=== PATIENT | female | born 1940 | race Caucasian/White ===

== ENCOUNTER → 2018-01-22 | Outpatient (CLI) | payer OTHER ==
[~2018-01-22] MED LIST: ALBUTEROL INH; ALENDRONATE SOD70 MG PO; AMBEREN PO; ASPIRIN325 PO; BAYER CHEWABLE81 MG PO; CALCIUM PO; CENTRUM SILVER1 EAC4 PO; CRESTOR20 MG PO; GLUCOSAMINE-CH1 EA37 PO; IBUPROFEN 200200 M1 PO; LOPRESSOR25 PO; NORCO 5-325 TA1 EACH PO; OMEGA-31000 MG PO; PLAVIX 75 MG TA75 MG PO; PROTONIX40 M1 PO; RESTASIS1 EACH; SPIRIVA INH; SYMBICORT160 MCG/4. INH; THERA TEARS1 EAC1; THERA TEARS1 EACH OP; TYLENOL325 MG PO; ZETIA10 MG PO
== END ==
LOC: CAT 10:15
DX: M48.04 Spinal stenosis, thoracic region (principal); I25.10 Atherosclerotic heart disease of native coronary artery without angina pectoris; I70.0 Atherosclerosis of aorta; J98.4 Other disorders of lung; N26.1 Atrophy of kidney (terminal); K44.9 Diaphragmatic hernia without obstruction or gangrene

== ENCOUNTER 2020-08-27 18:23 | Inpatient (IN) | payer OTHER ==
[~2020-08-27] VITALS: Ht 160 cm; Wt 54.9 kg
[2020-08-28] MEDS ORDERED: IRON18 M1 PO (01:13)
--- NOTE | 2020-08-28 03:12 | NUR ---
DIRECT ADMIT FROM [facility]. ARRIVED TO THE UNIT AT APPROXIMATELY 0100. PT IS A/O X4 AND IS ON 2 LITERS OF 02 NC. DENIES ANY C/O PAIN OR DISCOMFORT. NEWSPAPER MANAGER VISITED WITH PT AND HAS PUT IN ORDERS. ADMISSION IS COMPLETE. PT IS SITTING IN RECLINER AND STATES SHE HAS A HX OF COPD WITH SOA WHILE LYING DOWN SO PREFERS TO SLEEP IN THE CHAIR. VSS. AFEBRILE. LABS DRAWN AT PREVIOUS HOSPITAL WITH LOW HGB. NOTIFIED NEWSPAPER MANAGER. ORDERS FOR REDRAW WITH LAB IN THE AM RUN. UPDATED MED REC WITH PT. FALL PRECAUTIONS ARE IMPLEMENTED, CALL LIGHT IS WITHIN REACH. WILL CONTINUE TO MONITOR.
[2020-08-28] MEDS ORDERED: IRON325 M1 PO (04:55)
[2020-08-28] MEDS ORDERED: CRESTOR20 MG PO (05:04)
[2020-08-28] MEDS ORDERED: HYDROCHLOROTHIA25 M2 PO ×2 (05:07→05:08)
[2020-08-28] MEDS ORDERED: COZAAR 25 MG TA25 M1 PO (05:10)
[2020-08-28 05:50] VITALS: BP 140/90
[2020-08-28 06:57] LABS: HEMOGLOBIN 6.8 gm/dL (12.0-15.0)
[2020-08-28 07:00] LABS: HEMATOCRIT 21.2 % (37.0-47.0); MCH 29.6 pg (26.0-34.0); MCHC 32.1 g/dL (28.0-37.0); MCV 92.4 fL (80.0-100.0); RBC 2.29 mil/uL (4.20-5.00); WBC 5.9 thou/uL (4.0-11.0)
[2020-08-28 07:07] LABS: CALCIUM 9.3 mg/dL (8.5-10.1); CREATININE 3.4 mg/dL (0.6-1.0); POTASSIUM 4.2 mmol/L (3.5-5.1)
[2020-08-28 07:13] LABS: TOTAL BILIRUBIN 0.3 mg/dL (0.2-1.0); TOTAL PROTEIN 7.1 g/dL (6.4-8.2)
[2020-08-28 08:55] LABS: % SATURATION 19 % (20-39); IRON 38 ug/dL (50-170); TIBC 196 ug/dL (250-450)
[2020-08-28 09:08] LABS: FERRITIN 214 ng/mL (8-252)
[2020-08-28 09:16] VITALS: BP 141/79
--- NOTE | 2020-08-28 09:20 | NUR ---
Patient had right dumpectomy, no blood procedure or IV stick in right arm; the staff put a pink alert wrist band on the right wrist; patient has an IV on the right arm, but patient refused to have that IV pulled out and refused to have a new IV on the other side.
--- NOTE | 2020-08-28 09:34 | NUR ---
Patient refused to take pills with empty stomach. Patient wants to find out the reason why she has been on NPO, Dr. Adithya case, awaiting response.
--- NOTE | 2020-08-28 12:36 | EKG ---
[place] [address] [address] [facility] [facility] [place] [address] ELECTROCARDIOGRAM REPORT Name: SURYA NUGENTLISA Mcintosh Room #: 463-P ADM IN M.R.#: [id number] Admission: 08/28/20 Attend Phys: Shyam Haji MD Discharge: Date of : 39 Report #: [id number] [facility] Test Date: 2020-08-28 Test Time: 09:09:31 Pat Name: SABINA NUGENT Department: Room: 463 Gender: F [employer] Supervisor: : 1940 Requested By: Manny Slade Order Number: [id number] MD: Manny Slade Measurements Intervals [place] Rate: 97 P: 84 DE: 76 QRS: 12 QRSD: 96 T: 140 QT: 505 QTc: 642 Interpretive Statements Sinus rhythm Nonspecific ST segment abnormality Prolonged QT interval Baseline wander in lead(s) V6 Compared to ECG 01/11/2014 04:29:50 Nonspecific change in the ST and T wave segments Electronically Signed On 08-28-2020 12:36:45 REPRINT SORTER by Manny Slade [email or web address] <ELECTRONICALLY SIGNED> By: Manny Slade MD, [facility] 08/28/20 [phone] Manny Slade MD, [facility] /EPI
--- NOTE | 2020-08-28 13:09 | 2DMMODE ---
[facility] [place] [address] 2 D/M-MODE ECHOCARDIOGRAM Name: SABINA NUGENT Dayna Room #: 463-P ADM IN M.R.#: [id number] Admission: 08/28/20 Attend Phys: Shyam Haji MD Discharge: Date of : 39 Report #: [id number] THIS REPORT FOR: cc: Riley Quintero MD,Abdoulaye Slade,Manny Arias MD [facility] ~ APPROVED REPORT Study performed: 08/28/2020 09:59:56 EXAM: Comprehensive 2D, Doppler, and color-flow Echocardiogram Patient Location: Bedside Room #: 463 Status: on-call BSA: 1.56 HR: 91 bpm BP: 140/90 mmHg Rhythm: NSR Other Information Study Quality: Adequate Indications Congestive Heart Failure COPD CAD 2D Dimensions RVDd: 39.99 mm IVSd: 10.40 (7-11mm) LVOT Diam: 21.43 (18-24mm) LVDd: 56.93 mm PWd: 10.13 (7-11mm) Ascending Ao: 30.40 (22-36mm) LVDs: 45.38 (25-40mm) Aortic Root: 31.32 mm IVC: 15.00 mm Volumes Left Atrial Volume (Systole) Single Plane 4CH: 60.84 mL Single Plane 2CH: 90.04 mL LA ESV Index: 53.00 mL/m2 Aortic Valve AoV Peak Kvng.: 3.16 m/s AO Peak Gr.: 39.82 mmHg LVOT Max P.57 mmHg AO Mean Gr.: 21.03 mmHg LVOT Mean P.03 mmHg [facility] [address] [place] [address] 2 D/M-MODE ECHOCARDIOGRAM Name: SABINA NUGENT Room #: 463-P [facility] IN .R.#: [id number] Admission: 08/28/20 Attend Phys: Shyam Haji MD Discharge: Date of : 39 Report #: [id number] V2 Mean: 2.14 m/s LVOT Max V: 1.18 m/s AO V2 VTI: 64.65 cm LVOT Mean V: 0.81 m/s GERRY (VTI): 1.47 cm2 LVOT V1 VTI: 26.36 cm GERRY Vmax: 1.35 cm2 AI Vmax: 4.94 m/s SV (LVOT): 95.03 mL AI Coal: 4.85 m/s2 AI PHT: 294.95 ms Mitral Valve E/A Ratio: 1.8 MV Decel. Time: 100.20 ms MV E Max Kvng.: 1.37 m/s MV A Kvng.: 0.75 m/s MV PHT: 29.06 ms IVRT: 72.66 ms Pulmonary Valve PV Peak Kvng.: 0.82 m/s PV Peak Gr.: 2.70 mmHg Pulmonary Vein P Vein S: 0.55 m/s P Vein A: 0.27 m/s P Vein D: 0.72 m/s P Vein A Dur.: 93.4 msec P Vein S/D Ratio: 0.76 Tricuspid Valve TR Peak Kvng.: 3.61 m/s RAP Estimate: 5.00 mmHg TR Peak Gr.: 52.06 mmHg PA Pressure: 57.00 mmHg Left Ventricle Left ventricle is mildly dilated. There is global hypokinesis of the left ventricle. There is normal left ventricular wall thickness. Left ventricular systolic function is mild to moderately decreased. LVEF is 45%. Right Ventricle Right ventricle is mildly dilated. The right ventricular systolic function is normal. Atria Left atrium is severely dilated. The right atrium size is normal. Aortic Valve Aortic valve leaflets are heavily calcified, trileaflet. Moderate aortic regurgitation There is moderate [place] [address] 2 D/M-MODE ECHOCARDIOGRAM Name: SABINA NUGENT Room #: 463-P [facility] IN .R.#: [id number] Admission: 08/28/20 Attend Phys: Shyam Haji MD Discharge: Date of : 39 Report #: [id number] Calculated aortic valve area is 1.3 cm2 (Peak gradient of 40 mmHg, mean pressure gradient of 21 mmHg). Mitral Valve Mild mitral annular calcification. Leaflets are mildly thickened. Severe mitral regurgitation. No evidence of mitral valve stenosis. Tricuspid Valve The tricuspid valve is normal in structure. Mild tricuspid regurgitation. Estimated PAP is 55 mmHg. Pulmonic Valve Pulmonic valve is not well visualized. There is no pulmonic valvular regurgitation. Great Vessels The aortic root is normal in size. IVC is normal in size and collapses >50% with inspiration. Pericardium There is no pericardial effusion. Small pleural effusion is noted. <Conclusion> Left ventricular systolic function is mild to moderately decreased. There is global hypokinesis of the left ventricle. LVEF is 45%. Left atrium is severely dilated. Aortic valve leaflets are heavily calcified, trileaflet. Moderate to severe aortic stenosis. Calculated aortic valve area is 1.3 cm2 (Peak gradient of 40 mmHg, mean pressure gradient of 21 mmHg). Moderate aortic regurgitation Mild mitral annular calcification. Leaflets are mildly thickened. Severe mitral regurgitation. Mild tricuspid regurgitation. Estimated pulmonary artery pressure of 55 mmHg. There is no pericardial effusion. <ELECTRONICALLY SIGNED> By: Manny Slade MD, [facility]ACC 08/28/20 1309 1309 130 Manny Slade MD, [facility]ACC /INF
[2020-08-28 14:43] LABS: PROT/CREAT RATIO 0.7; URINE CREATININE-RANDOM* 96.2 mg/dL; URINE PROTEIN-RANDOM* 69.1 mg/dL (<11.9)
[2020-08-28 15:11] VITALS: BP 119/66
[2020-08-28 15:34] VITALS: BP 117/45; BP 118/55; BP 118/66; BP 121/48; BP 140/90
[2020-08-28 15:57] VITALS: BP 118/66
[2020-08-28 20:15] VITALS: BP 137/75
--- NOTE | 2020-08-29 03:31 | NUR ---
VSS-AFEBRILE. LUNGS DIMINISHED IN ALL BAXTER BILATERALLY. RUNS BETWEEN ROOM AIR AND NEEDING 2LNC. COVID TEST DONE PER ORDERS, AWAITING RESULT. OOB WITH SBA, OCCASIONAL SHAKINESS ON FEET, CALLS APPROPRIATELY FOR ANY NEEDED ASSISTANCE, FALL PRECAUTIONS IN PLACE.
[2020-08-29 08:28] VITALS: BP 128/67
[2020-08-29 09:56] LABS: HEMATOCRIT 27.2 % (37.0-47.0); MCH 29.8 pg (26.0-34.0); MCHC 33.1 g/dL (28.0-37.0); MCV 89.9 fL (80.0-100.0); RBC 3.03 mil/uL (4.20-5.00); RDW 18.1 % (10.5-14.5); WBC 10.5 thou/uL (4.0-11.0)
[2020-08-29 10:10] LABS: ALBUMIN 3.4 g/dL (3.4-5.0); CALCIUM 8.9 mg/dL (8.5-10.1); CREATININE 3.6 mg/dL (0.6-1.0)
[2020-08-29 10:17] LABS: POTASSIUM 2.9 mmol/L (3.5-5.1)
--- NOTE | 2020-08-29 11:07 | NUR ---
ASSUMED CARE AT 0700. SCD HOSE ARE IN PLACE. LAB CALLED REGARDING CRITICAL POTASSIUM LEVEL. CONTACTED DR. MCCRAY REGARDING THE CRITICAL VALUE. PT COMPLAINS OF COUGH AND WAS GIVEN COUGH MEDICATION. CLEAR LUNGS. IV IS INTACT AND SHOWS NO SIGNS OF REDNESS OR SWELLING. CURRENTLY ON RA. PT COMPLAINS OF SLIGHT SOA. WILL CONTINUE TO MONITOR. HGB IS NOW 9.0 . FALL PRECAUTION. [facility]
--- NOTE | 2020-08-29 12:48 | EKG ---
[address] [place] [address] ELECTROCARDIOGRAM REPORT Name: DRAGAN NUGENTJERRY Mcintosh Room #: 463-P ADM IN M.R.#: [id number] Admission: 08/28/20 Attend Phys: Shyam Haji MD Discharge: Date of : 39 Report #: [id number] [facility] Test Date: 2020-08-29 Test Time: 08:54:19 Pat Name: SABINA NUGENT Department: Room: 463 P Gender: F Electrotype Molder: TAYLER : 1940 Requested By: Manny Slade Order Number: [id number] MD: Manny Slade Measurements Intervals [place] Rate: 87 P: 59 NC: 157 QRS: -6 QRSD: 100 T: 2 QT: 312 QTc: 376 Interpretive Statements Sinus rhythm Atrial premature complex Abnormal R-wave progression, late transition Nonspecific ST and T wave abnormality Compared to ECG 08/28/2020 09:09:31 Atrial premature complex(es) now present Electronically Signed On 08-29-2020 12:48:36 DRIER HELPER by Manny Slade [email or web address] <ELECTRONICALLY SIGNED> By: Manny Slade MD, [facility] 08/29/20 [phone] Manny Slade MD, [facility] /EPI
[2020-08-29 15:49] VITALS: BP 137/80
[2020-08-29 21:29] VITALS: BP 143/82
--- NOTE | 2020-08-30 02:16 | NUR ---
ASSUMED PT CARE AT SHIFT CHANGE. PT DENIES PAIN. PT IS ABLE TO CALL OUT APPROPRIATELY. PT'S IV IS PATENT IN LEFT FOREARM. AFTER SPEAKING WITH PT SHE STATES THAT SHE IS SOB. PT PREFERS HALF CUP OF WATER BEFORE BED. I PUT HER ON 2 L NASAL CANULA. PT IS NOW ASLEEP IN HER ROOM. HOURLY ROUNDING DONE ON PT. WILL CONTINUE TO MONITOR.
[2020-08-30 06:14] LABS: HEMOGLOBIN 9.4 gm/dL (12.0-15.0); MCH 29.4 pg (26.0-34.0); MCHC 32.3 g/dL (28.0-37.0); RBC 3.19 mil/uL (4.20-5.00); WBC 11.4 thou/uL (4.0-11.0)
[2020-08-30 06:33] LABS: CALCIUM 8.7 mg/dL (8.5-10.1); CREATININE 3.7 mg/dL (0.6-1.0); MAGNESIUM 2.2 mg/dL (1.8-2.4)
[2020-08-30 06:40] LABS: POTASSIUM 4.1 mmol/L (3.5-5.1)
[2020-08-30 07:12] VITALS: BP 114/80
[2020-08-30 15:48] VITALS: BP 128/79
--- NOTE | 2020-08-30 16:35 | NUR ---
PT ADMITTED RELATED TO ACUTE RESPIRATORY FAILURE/PHEUMONIA. CM MET WITH PT AT BEDSIDE THIS DAY. PT APPEARED TO BE A&O X4. CM ROLE INTORDUCED. PT INDICATED SHE LIVES IN A HOUSE WITH HER SPOUSE WITH 40 CHICKENS, DOGS, CATS. 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 PT INDICATED SHE HAS A FWW TO USE IF NEEDED UPON DC. PT INDICTED NO HOME O2. PT INDICATED SHE HOPES TO RETURN HOME ONCE MEDICALLY STABLE. PT IS RECEPTIVE TO HH IF NEEDED UPON DC AND SHE THINKS SHE'S HAD IT BEFORE AND SPOUSE MIGHT KNOW COMPANY. ANTICPATE THAT PT MAY BE MEDICALLY STABLE TO DC HOME TOMORROW. PT'S PCP OS DR. JUANIS ROBERTS. CM TO FOLLOW INDICATED WITH DC PLANNING.
--- NOTE | 2020-08-30 19:44 | NUR ---
Assumed pt care at 7am.Pt in and out of chair to bathroom with sba and sometimes independently.Pt encouraged to call for assist as needed.Assessment completed.vss.Pt c/o diarrhea x4 today.Dr Haji here and Leoncio here,order noted. Piv went bad and it was replaced by iv team.Pt will be dc home in am.Will continue to monitor.
[2020-08-31 05:13] VITALS: BP 138/74
--- NOTE | 2020-08-31 05:23 | NUR ---
Pt. rested quietly during the night when checked on during frequent rounds. She gets easily short of air upon activity, but recovers with rest. Continues on O2 at per a nasal canula. Plan for discharge soon.
[2020-08-31 05:32] LABS: ABSOLUTE NEUTROPHILS 9.5 thou/uL (1.4-8.2); HEMATOCRIT 26.7 % (37.0-47.0); HEMOGLOBIN 8.6 gm/dL (12.0-15.0); LYMPHOCYTES 6.7 % (24.0-44.0); MCH 29.3 pg (26.0-34.0); MCHC 32.4 g/dL (28.0-37.0); MCV 90.4 fL (80.0-100.0); MONOCYTES 7.7 % (1.0-8.0); PLATELET COUNT 293 thou/uL (150-400); POLYS 85.6 % (36.0-66.0); RBC 2.95 mil/uL (4.20-5.00); RDW 18.6 % (10.5-14.5); WBC 11.8 thou/uL (4.0-11.0)
[2020-08-31 05:43] LABS: ALBUMIN 2.9 g/dL (3.4-5.0); CALCIUM 8.4 mg/dL (8.5-10.1); CREATININE 3.6 mg/dL (0.6-1.0); PHOSPHORUS 3.1 mg/dL (2.5-4.9); POTASSIUM 3.3 mmol/L (3.5-5.1)
[2020-08-31] MEDS ORDERED: K-DUR 20 MEQ T20 MEQ PO (08:50)
[2020-08-31] MEDS ORDERED: TORSEMIDE20 MG PO (08:50)
--- NOTE | 2020-08-31 09:30 | HC ---
[facility] [place] [address] CONSULTATION Name: SABINA NUGENT Room #: 463-P ADM IN M.R.#: [id number] Admission: 08/28/20 Attend Phys: Shyam Haji MD Discharge: Date of : 39 Report #: [id number] THIS REPORT FOR: cc: Riley Quintreo MD,Abdoulaye Slade,Manny Arias MD [facility] ~ REASON FOR CONSULTATION: Shortness of breath. HISTORY OF PRESENT ILLNESS: The patient is an 79-year-old woman with a complicated history including known severe COPD. She has a history of coronary artery disease with remote stenting, breast cancer with right mastectomy and underwent a recent open abdominal aortic aneurysm resection by Dr. Christina at [facility] in June. This was complicated by renal failure and anemia. She tells me that she lost the kidney during this procedure and she thinks that a renal artery bypass was performed, although is not certain. These records have been requested. She had postoperative renal failure and has been under the care of a mine patrol. She now presents with increasing shortness of breath and orthopnea. No fevers or chills. She has been severely anemic post-aneurysm repair and has been on oral iron. She denies chest pain, pressure or ischemic type symptoms. MEDICATIONS: Include iron, Zetia 10 mg daily, Protonix, Symbicort, metoprolol 25 mg twice daily, aspirin 81 mg daily, rosuvastatin 20 mg daily, hydrochlorothiazide 12.5 mg daily. PAST MEDICAL HISTORY: Medical records have been reviewed and include history of breast cancer with radiation and chemotherapy. On the right chest, recent abdominal aortic aneurysm resection, COPD, tubal ligation, partial hysterectomy, dyslipidemia. SOCIAL HISTORY: She is a former smoker. . FAMILY HISTORY: Unremarkable for premature coronary artery disease. REVIEW OF SYSTEMS: All systems negative except as that noted above. PHYSICAL EXAMINATION: GENERAL: A pleasant woman in no distress. VITAL SIGNS: Blood pressure is 140/79, heart rate of 80 and regular. She is afebrile, 5 feet 3 inches tall, 121 pounds. HEENT: There are neither xanthelasma, subcutaneous xanthomata, oral mucosal or digital cyanosis or kyphoscoliosis present. CHEST: Reveals diminished breath sounds at both bases. CARDIAC: Regular rate and rhythm with normal S1, S2. ABDOMEN: Soft with a well-healed surgical scar. EXTREMITIES: Without edema. Radial pulses are 2+. [facility] [address] [place] [address] CONSULTATION Name: SABINA NUGENT Room #: 463-P [facility] IN .R.#: [id number] Admission: 08/28/20 Attend Phys: Shyam Haji MD Discharge: Date of : 39 Report #: [id number] NEUROLOGIC: She is alert with a nonfocal exam. LABORATORY DATA: Creatinine 3.4. Sodium 139, potassium 4.2. Troponin of 0. Iron 38, hemoglobin 6.8, white count 5.9, hematocrit 21.2. Chest CT without contrast demonstrates moderate right and small left effusion, interstitial edema is present. IMPRESSION: 1. Yxadx-tb-bkubuaa hypoxemic respiratory failure, multifactorial. 2. Chronic obstructive pulmonary disease exacerbation. 3. Acute on chronic diastolic heart failure. 4. Severe anemia, symptomatic. 5. Coronary artery disease, stable. 6. Acute kidney injury related to recent open abdominal aortic aneurysm repair. 7. Hypertension. 8. Dyslipidemia. 9. Right breast cancer with chemotherapy and radiation to the right chest. 10. Peripheral vascular disease. 11. Prior tobacco dependency. RECOMMENDATIONS: 1. Consider transfusion. 2. COVID testing. 3. Agree with renal and pulmonary consultations. 4. I do not suspect an ischemic myocardial event responsible for presenting symptoms, but rather a combination of chronic problems exacerbated by her recent open abdominal aortic aneurysm repair. This has been discussed with the patient in detail. Echocardiogram ordered. Records requested. Thank you for asking me to participate in her care. <ELECTRONICALLY SIGNED> By: Manny Slade MD, FACC 08/31/20 0930 0934 0949 Manny Slade MD, FACC /nt
--- NOTE | 2020-08-31 14:59 | NUR ---
FAXED REFERRAL TO [facility] SPOKE WITH LLAY IN INTAKE SHE RECEIVED REFERRAL AND WILL ACCEPT AT [place].
[2020-08-31 15:00] VITALS: BP 128/79
--- NOTE | 2020-08-31 15:53 | NUR ---
CM FOLLOWED UP WITH PT AT BEDSIDE THIS DAY. SHE INDICATED THAT SHE WAS CONTEMPLATING HAVING AN EGD. SHE STATED THAT SHE HAD [facility] IN THE PAST AND SHE WOULD LIKE REFERRAL SENT TO THEM FOR SERVICES UPON DC. [facility] CAN ACCEPT UPON DC. EGD TOMORROW. CM TO FOLLOW INDICATED WITH DC PLANNING.
--- NOTE | 2020-08-31 18:27 | NUR ---
Assumed pt care at 7am.Pt in and out of chair with sba.Assessment completed. vss.Dr Haji and [place] here,order noted.Dr Rios notified about pt consult and later rounded on pt this evening.Pt will be going for egd in am.Pt informed about upcoming procedure and will be npo after midnoc.Report off to noc rn.
[2020-08-31 19:18] VITALS: BP 131/64
--- NOTE | 2020-09-01 02:46 | NUR ---
ASSUMED PT CARE AT SHIFT CHANGE. PT IS A&OX4. PT TAKES MEDICATION ONE PILL AT A TIME APPROPRIATELY. PT WAS SITTING IN THE CHAIR TILL BEDTIME THEN SHE GOT IN THE BED. PT DENIES PAIN. VSS. PT STATES THAT HER SKIN IS ITCHING, I OFFERED TO CALL AND SEE IF WE COULD GET BENADRYL. PT STATES THAT SHE'LL WAIT. I OFFERED THE PT A SHOWER AND SHE REFUSED UNTIL CLOSER TO THE PROCEDURE. PT STATES THAT SHE WANTS TO GO HOME AFTER HER EGD ON 09/01/20. PT STATES THAT SHE WANTS TO DO OUT PATIENT TREATMENT AFTER IF IT IS NEEDED. PT SLEEPS THROUGHT THE NIGHT. HOURLY ROUNDING DONE ON PT. WILL CONTINUE TO MONITOR.
[2020-09-01 06:11] LABS: HEMOGLOBIN 9.6 gm/dL (12.0-15.0); MCH 29.1 pg (26.0-34.0); MCHC 32.1 g/dL (28.0-37.0); MCV 90.7 fL (80.0-100.0); RBC 3.31 mil/uL (4.20-5.00); RDW 18.3 % (10.5-14.5); WBC 12.6 thou/uL (4.0-11.0)
[2020-09-01 06:29] LABS: CALCIUM 9.1 mg/dL (8.5-10.1); CREATININE 4.1 mg/dL (0.6-1.0); POTASSIUM 3.2 mmol/L (3.5-5.1)
[2020-09-01 08:41] VITALS: BP 136/61
[2020-09-01] MEDS ORDERED: MUCINEX600 MG PO (15:56)
[2020-09-01] MEDS ORDERED: LEVOFLOXACIN500 MG PO (15:56)
[2020-09-01] MEDS ORDERED: MIRALAX17 GM PO (15:56)
[2020-09-01] MEDS ORDERED: IPRAT-ALBUT 0.5-3 ML INH (15:56)
[2020-09-01] MEDS ORDERED: PREDNISONE 20 M20 M1 PO (15:56)
[2020-09-01] MEDS ORDERED: DIFLUCAN100 MG PO (15:58)
--- NOTE | 2020-09-01 16:52 | NUR ---
PT DISCHARGING TODAY TO HOME WITH [facility] FAXED DC ORDERS/SUMMARY RECEIVED CONFIRMATION SPOKE WITH LALY IN INTAKE SHE WILL ARRANGE VISITS WITH PT.
[2020-09-01 17:29] VITALS: BP 128/79
--- NOTE | 2020-09-01 19:20 | NUR ---
Assumed pt care at 0700. pt was in her room resting. Assessment completed, VSS. pt was calm and co-operative with care, Pt was NPO, there were no complaint of pain or distress. at approximately noon pt was taking down for EGD. at approximately 1400 pt was brought back in stable condition. VSS DONE. AT 1824 pt was discharge home. MANAGER REPORT transported pt via wheelchair to the ER. Pt son took pt home. Discharge instruction were given to pt. pt coomunicated understanding to instruction.
[2020-09-02] MEDS ORDERED: MUCINEX600 MG PO (14:05)
[2020-09-02] MEDS ORDERED: TORSEMIDE20 MG PO (14:05)
[2020-09-02] MEDS ORDERED: K-DUR 20 MEQ T20 MEQ PO (14:05)
[2020-09-02] MEDS ORDERED: DIFLUCAN100 MG PO (14:05)
[2020-09-02] MEDS ORDERED: MIRALAX17 GM PO (14:05)
[2020-09-02] MEDS ORDERED: PREDNISONE 20 M20 M1 PO (14:05)
[2020-09-02] MEDS ORDERED: IPRAT-ALBUT 0.5-3 ML INH (14:05)
[2020-09-02] MEDS ORDERED: LEVOFLOXACIN500 MG PO (14:05)
== END 2020-09-01 18:24 | disposition home health service (06) | DRG 682 ==
LOC: 4W 18:23
PROVIDERS: Internal Medicine; Internal Medicine Nephrology; Nurse Practitioner Family; ADMIT Internal Medicine; ATTEND Internal Medicine
PROC: 30233N1 Transfusion of Nonautologous Red Blood Cells into Peripheral Vein, Percutaneous Approach (ICD-10-PCS; principal; 2020-08-28)
PROC: 0DB78ZX Excision of Stomach, Pylorus, Via Natural or Artificial Opening Endoscopic, Diagnostic (ICD-10-PCS; 2020-09-01)
PROC: 0DD58ZX Extraction of Esophagus, Via Natural or Artificial Opening Endoscopic, Diagnostic (ICD-10-PCS; 2020-09-01)
DX: N17.9 Acute kidney failure, unspecified (principal); J96.21 Acute and chronic respiratory failure with hypoxia; I50.33 Acute on chronic diastolic (congestive) heart failure; J44.1 Chronic obstructive pulmonary disease with (acute) exacerbation; B37.81 Candidal esophagitis; I13.0 Hypertensive heart and chronic kidney disease with heart failure and stage 1 through stage 4 chronic kidney disease, or unspecified chronic kidney disease; Z20.822 Contact with and (suspected) exposure to COVID-19; E78.5 Hyperlipidemia, unspecified; I25.10 Atherosclerotic heart disease of native coronary artery without angina pectoris; I73.9 Peripheral vascular disease, unspecified; N18.4 Chronic kidney disease, stage 4 (severe); D63.8 Anemia in other chronic diseases classified elsewhere; M81.0 Age-related osteoporosis without current pathological fracture; R13.10 Dysphagia, unspecified; K31.89 Other diseases of stomach and duodenum; K25.9 Gastric ulcer, unspecified as acute or chronic, without hemorrhage or perforation; R68.81 Early satiety; J02.9 Acute pharyngitis, unspecified; I08.0 Rheumatic disorders of both mitral and aortic valves; Z85.3 Personal history of malignant neoplasm of breast; Z92.21 Personal history of antineoplastic chemotherapy; Z92.3 Personal history of irradiation; Z90.711 Acquired absence of uterus with remaining cervical stump; Z87.891 Personal history of nicotine dependence; Z95.5 Presence of coronary angioplasty implant and graft; Z90.11 Acquired absence of right breast and nipple; Z88.6 Allergy status to analgesic agent
CPT/HCPCS: 10040; 10047; 62110; 62900; 70005

== ENCOUNTER → 2020-10-07 | Outpatient (CLI) | payer OTHER ==
[~2020-10-07] MED LIST changes: +COZAAR 25 MG TA25 M1 PO; +DIFLUCAN100 MG PO; +HYDROCHLOROTHIA25 M2 PO; +IPRAT-ALBUT 0.5-3 ML INH; +IRON18 M1 PO; +IRON325 M1 PO; +K-DUR 20 MEQ T20 MEQ PO; +LEVOFLOXACIN500 MG PO; +MIRALAX17 GM PO; +MUCINEX600 MG PO; +PREDNISONE 20 M20 M1 PO; +TORSEMIDE20 MG PO
== END ==
LOC: SJCVC 14:41
PROVIDERS: ATTEND Internal Medicine
DX: R94.31 Abnormal electrocardiogram [ECG] [EKG] (principal); I25.10 Atherosclerotic heart disease of native coronary artery without angina pectoris; I13.0 Hypertensive heart and chronic kidney disease with heart failure and stage 1 through stage 4 chronic kidney disease, or unspecified chronic kidney disease; N18.9 Chronic kidney disease, unspecified; I50.32 Chronic diastolic (congestive) heart failure; I08.0 Rheumatic disorders of both mitral and aortic valves; E78.5 Hyperlipidemia, unspecified; D64.9 Anemia, unspecified; I71.4 Abdominal aortic aneurysm, without rupture; J44.9 Chronic obstructive pulmonary disease, unspecified; I73.9 Peripheral vascular disease, unspecified; Z79.82 Long term (current) use of aspirin; Z79.899 Other long term (current) drug therapy; Z87.891 Personal history of nicotine dependence; Z88.5 Allergy status to narcotic agent

== ENCOUNTER → 2020-11-11 | Outpatient (CLI) | payer OTHER ==
[~2020-11-11] MED LIST changes: +FISH OIL 1,0001 EAC9 PO; +METOPROLOL TART25 MG PO; +ROSUVASTATIN CA20 MG PO
== END ==
LOC: LAB 14:24
PROVIDERS: ATTEND Internal Medicine Gastroenterology
DX: Z01.812 Encounter for preprocedural laboratory examination (principal); Z20.822 Contact with and (suspected) exposure to COVID-19

== ENCOUNTER → 2021-01-11 | Outpatient (CLI) | payer OTHER | LOC: SJCVCIMAG 09:19 | PROVIDERS: ATTEND Internal Medicine | DX: R94.31 Abnormal electrocardiogram [ECG] [EKG] (principal); R00.1 Bradycardia, unspecified; I49.9 Cardiac arrhythmia, unspecified; I25.10 Atherosclerotic heart disease of native coronary artery without angina pectoris; I08.0 Rheumatic disorders of both mitral and aortic valves; E78.5 Hyperlipidemia, unspecified; D64.9 Anemia, unspecified; I71.4 Abdominal aortic aneurysm, without rupture; J43.9 Emphysema, unspecified; I13.0 Hypertensive heart and chronic kidney disease with heart failure and stage 1 through stage 4 chronic kidney disease, or unspecified chronic kidney disease; I50.32 Chronic diastolic (congestive) heart failure; N18.9 Chronic kidney disease, unspecified; Z88.5 Allergy status to narcotic agent; Z79.899 Other long term (current) drug therapy; Z79.82 Long term (current) use of aspirin; Z87.891 Personal history of nicotine dependence ==